=== PATIENT | male | born 1950 | race Hispanic/Latino ===

== ENCOUNTER → 2022-07-25 | Outpatient (CLI) | payer OTHER | END | disposition home or self-care (01) | LOC: RAH 16:17 | PROVIDERS: ATTEND Family Medicine | DX: S46.212A Strain of muscle, fascia and tendon of other parts of biceps, left arm, initial encounter (principal); M19.012 Primary osteoarthritis, left shoulder; M89.8X8 Other specified disorders of bone, other site; X58.XXXA Exposure to other specified factors, initial encounter; Y93.89 Activity, other specified; Y92.89 Other specified places as the place of occurrence of the external cause; Y99.8 Other external cause status | CPT/HCPCS: 73060 ==

== ENCOUNTER → 2022-10-11 | Outpatient (CLI) | payer OTHER | END | disposition home or self-care (01) | LOC: SHCH 09:30 | PROVIDERS: ATTEND Internal Medicine | DX: R07.9 Chest pain, unspecified (principal); I10 Essential (primary) hypertension; E78.5 Hyperlipidemia, unspecified | CPT/HCPCS: 93306 ==

== ENCOUNTER → 2022-11-13 | Outpatient (CLI) | payer OTHER ==
[2022-11-13 13:05] LABS: CREATININE 0.9 mg/dL (0.5-1.5)
== END | disposition home or self-care (01) ==
LOC: LAB 11:08
PROVIDERS: ATTEND Internal Medicine
DX: I10 Essential (primary) hypertension (principal); R07.89 Other chest pain
CPT/HCPCS: 36415; 82565; 84520

== ENCOUNTER 2022-12-05 08:53 | Day surgery (SDC) | payer OTHER, MEDICARE ==
[2022-12-03 14:11] LABS: BASOPHILS # (AUTO) 0.04 K/uL (0.00-0.20); BASOPHILS % (AUTO) 0.6 % (0.0-5.0); EOSINOPHILS # (AUTO) 0.14 K/uL (0.00-0.70); EOSINOPHILS % (AUTO) 2.1 % (0.0-8.0); HEMATOCRIT 42.8 % (42-54); IMMATURE GRANULOCYTE ABSOLUTE 0.03 K/uL (0-1); LYMPHOCYTES % (AUTO) 31.1 % (21.0-51.0); MEAN CORPUSCULAR HEMOGLOBIN 31.2 pg (27.0-33.0); MEAN CORPUSCULAR HGB CONC 34.1 g/dL (32.0-36.0); MEAN CORPUSCULAR VOLUME 91.5 fL (79-99); MONOCYTES # (AUTO) 0.5 K/uL (0.1-1.0); MONOCYTES % (AUTO) 7.2 % (3.0-13.0); NEUTROPHILS # (AUTO) 3.8 K/uL (1.8-7.7); NEUTROPHILS % (AUTO) 58.5 % (40.0-77.0); PLATELET COUNT (AUTO) 247 K/uL (130-400); RED BLOOD CELL COUNT(AUTO) 4.68 MIL/uL (4.50-6.20); RED CELL DISTRIBUTION WIDTH 13.9 % (11.0-15.5); WHITE BLOOD COUNT (AUTO) 6.6 K/uL (4.8-10.8)
[2022-12-03 14:28] LABS: CREATININE 1.1 mg/dL (0.5-1.5); POTASSIUM 4.6 mmol/L (3.5-5.1)
[2022-12-03 14:29] LABS: INR 0.96 (0.85-1.15); PROTHROMBIN TIME 11.2 SEC (9.6-11.6)
[2022-12-03 14:30] LABS: PARTIAL THROMBOPLASTIN TIME 28.9 SEC (26.3-35.5)
[2022-12-05] VITALS (9 sets, daily range): BP systolic 94–119; BP diastolic 62–79; PULSE 55–79; RESP 15–18
[~2022-12-05] VITALS: Ht 177.8 cm; Wt 87.7 kg
[~2022-12-05 08:53] MED LIST: AEC81 PO; ASCO500C18 PO; ATOR40TA71 PO; CETI10TA57 PO; CHOL200013 PO; GLUC-252 PO; HYDR12.54 PO; ISOS30TA92 PO; LOSA50TA64 PO; MULT-1289 PO; NITR0.4T50 SL; OMEG-148 PO
[2022-12-05] MEDS ORDERED: IOPAMIDOL-370 100 ML VIAL IV ONE (08:54)
[2022-12-05] MEDS ORDERED: 0.9%NACL 1000ML 1,000 ML IV ONE (09:28)
[2022-12-05] MEDS ORDERED: LIDOCAINE HCL 400MG/20ML VIAL ONE (11:05)
[2022-12-05] MEDS ORDERED: FENTANYL CITRATE PF 50 MCG/1 ML 2ML VIAL ONE (11:05)
[2022-12-05] MEDS ORDERED: HEPARIN 10,000 UNIT/10ML (1,000 UNIT/ML) VIAL ONE (11:06)
[2022-12-05] MEDS ORDERED: MIDAZOLAM HCL 1 MG/ML 2ML VIAL ONE (11:06)
[2022-12-05] MEDS ORDERED: VERAPAMIL HCL 2.5 MG/ML VIAL ONE (11:06)
[2022-12-05] MEDS ORDERED: NITROGLYCERIN 50MG VIAL ONE (11:06)
[2022-12-05] MEDS ORDERED: TICAGRELOR 90 MG TABLET ONE (12:31)
[2022-12-05] MEDS ORDERED: 0.9%NACL 1000ML 1,000 ML IV SCH (13:00)
== END 2022-12-05 16:40 | disposition home or self-care (01) ==
LOC: DAH 08:53
PROVIDERS: ATTEND Internal Medicine
DX: I25.119 Atherosclerotic heart disease of native coronary artery with unspecified angina pectoris (principal); I10 Essential (primary) hypertension; E78.5 Hyperlipidemia, unspecified; Z79.82 Long term (current) use of aspirin; Z79.899 Other long term (current) drug therapy; Z98.890 Other specified postprocedural states; Z79.01 Long term (current) use of anticoagulants
CPT/HCPCS: 80048; 85025; 85610; 85730; 36415; 71045; 93005; 85347; 93458; C9600; C1769 ×4; C1887 ×2; C1894 ×3; C1725 ×2; C1874; C1760; A4649; Q9967; J3010; J3490 ×3; J7030; J1644 ×2; J2250; A4215; A4222; A4221; A4663; A4216; A4606; A4223 ×3; 96360; 96361; 99156; 99157